=== PATIENT | female | born 1980 | race Caucasian/White ===

== ENCOUNTER → 2023-07-17 15:27 | Outpatient (CLI) | payer BC, SELFPAY ==
--- NOTE | 2023-07-17 | DI.US.S_ITS ---
PROCEDURE: US PELVIC COMPLETE INDICATIONS: Midcycle bleeding. TECHNIQUE: Real-time scanning was performed of the pelvic organs, with image documentation. Additional endovaginal scanning was necessary due to incomplete visualization of the adnexal and endometrial structures by transabdominal scanning. COMPARISON: [facility], US, US ABDOMEN LIMITED, 07/17/2023, 16:21. [facility], US, US PELVIC COMPLETE WITH TRANSVAGINAL, 12/06/2020, 12:39. FINDINGS: Uterus: Uterus is anteverted and normal in size at 8.6 x 6.4 x 4.5 cm. The myometrium is homogeneous. The endometrium measures 16 mm combined thickness. No a few foci of increased abnormal vascularity can be seen along the endometrial stripe. There is a potential 1.8 x 1.5 x 0.7 cm polyp along the endometrial stripe. Ovaries: The right ovary measures 3.6 x 2.2 x 1.8 cm, with a calculated ovarian volume of 7.5 cc. Within the right ovary, there is a dominant follicle seen that measures up to 2.2 cm, which is considered to be within physiologic limits. The left ovary measures 3.3 x 2.3 x 2 cm, with a calculated ovarian volume of 7.9 cc. Less than 12 follicles can be seen in each ovary. No adnexal masses are seen. Other: No pathologic free abdominal or pelvic fluid. IMPRESSION: Endometrial stripe measures near the upper limits of normal, with a few foci of increased vascularity seen within the endometrial stripe. If it would be clinically appropriate, a followup pelvic ultrasound could be considered in 6 weeks to assure resolution/ improvement. Potential 18 mm polyp seen along the endometrial stripe. If clinically appropriate, a follow-up sonohysterogram versus hysteroscopy could be considered for further evaluation. We strive to produce accurate, complete, and clear reports of imaging services. To assist us in improving patient care, this report was composed using standard report templates and voice recognition software. Therefore, it may contain abnormal punctuation, insertions and/or omissions. Occasional wrong-word or sound-alike substitutions may occur. Though we review the report and make efforts to correct it, we do recommend that the report be read carefully in proper context to recognize any text inaccuracies. Dictated by: Ollie Chaves M.D. on 07/17/2023 at 17:21 Approved by: Ollie Chaves M.D. on 07/17/2023 at 17:24
--- NOTE | 2023-07-17 | DI.US.S_ITS ---
PROCEDURE: US ABDOMEN LIMITED INDICATIONS: Cystic disease of liver TECHNIQUE: Real-time focused scanning was performed of the abdomen, with image documentation. COMPARISON: [facility], US, US PELVIC COMPLETE, 07/17/2023, 15:46. [facility], US, US ABDOMEN COMPLETE, 12/06/2020, 8:31. FINDINGS: Liver demonstrates mildly increased size and normal overall echogenicity. Within the right liver dome, there is a 1.5 cm simple cyst. The main portal vein demonstrates normal size and demonstrates normal appearing, hepatopetal flow. No findings of gallstones or sludge are seen. The gallbladder wall is not thickened, measuring 3 mm or less. No specific pericholecystic fluid is seen. The sonographic Gonzalez sign is negative. There is no biliary dilatation, the common bile duct measures 4 mm. No significant pancreatic abnormality is seen on these images. The visualized right kidney is unremarkable, without hydronephrosis. The IVC is patent. No free fluid can be seen. IMPRESSION: There is a 1.5 cm simple cyst seen within the liver, which is regarded to be benign. Dictated by: Ollie Chaves M.D. on 07/17/2023 at 17:19 Approved by: Ollie Chaves M.D. on 07/17/2023 at 17:21
== END ==
PROVIDERS: Referring Provider Naturopath; Visit Provider Naturopath
DX: K76.89 Other specified diseases of liver (principal)
CPT/HCPCS: 76705; 76856